=== PATIENT | female | born 2000 | race Caucasian/White ===

== ENCOUNTER 2020-10-29 07:49 | Day surgery (SDC) | payer OTHER ==
[2020-10-27 10:31] VITALS: BMI 30.7
[2020-10-29 08:07] VITALS: TEMP 97.8
[2020-10-29] MEDS ORDERED: LIDOCAINE HCL/PF 2% SDV 5ML VIAL ONE (09:24)
[2020-10-29] MEDS ORDERED: PROPOFOL 20 ML ONE (09:24)
[2020-10-29 10:16] VITALS: BP 111/68; PULSE 68
== END 2020-10-29 10:15 | disposition home or self-care (01) ==
LOC: FASU-ENDO 07:49
PROVIDERS: ATTEND Internal Medicine Gastroenterology
PROC: 0DB68ZX Excision of Stomach, Via Natural or Artificial Opening Endoscopic, Diagnostic (ICD-10-PCS; 2020-10-29)
PROC: 0DB98ZX Excision of Duodenum, Via Natural or Artificial Opening Endoscopic, Diagnostic (ICD-10-PCS; principal; 2020-10-29 09:37)
DX: K29.50 Unspecified chronic gastritis without bleeding (principal); R10.13 Epigastric pain; R11.0 Nausea
CPT/HCPCS: 84703; 88305-TC; 88342-TC